=== PATIENT | female | born 1995 | race Hispanic/Latino ===

== ENCOUNTER 2022-06-24 18:21 | Inpatient (IN) | payer MEDICAID, SELFPAY ==
[~2022-06-24 18:21] MED LIST: Bupivacaine 0.25% HCL 30 ML VIAL ONE
[2022-06-24 18:59] VITALS: BMI 27.3
[2022-06-24] MEDS ORDERED: hydrALAZINE 20 MG/ML VIAL SLOW IVP PRN ×2 (19:46→19:59)
[2022-06-24 19:55] LABS: Fetal Membranes Rupture RUPTURE DETECTED (No Rupture)
[2022-06-24] MEDS ORDERED: Butorphanol Tartrate 1 MG/ML VIAL SLOW IVP PRN (19:59)
[2022-06-24] MEDS ORDERED: Ibuprofen 800 MG TAB PO PRN (19:59)
[2022-06-24] MEDS ORDERED: Misoprostol 200 MCG TAB PR PRN (19:59)
[2022-06-24] MEDS ORDERED: Carboprost 250 MCG/ML AMP IM PRN (19:59)
[2022-06-24] MEDS ORDERED: Promethazine HCl 25 MG/ML VIAL IM PRN (19:59)
[2022-06-24] MEDS ORDERED: Acetaminophen 500 MG TAB PO PRN (19:59)
[2022-06-24] MEDS ORDERED: Lidocaine 1% (PF) 30 ML VIAL SC PRN (19:59)
[2022-06-24] MEDS ORDERED: Ondansetron PF 4 MG/2 ML Vial IVP PRN (19:59)
[2022-06-24] MEDS ORDERED: Methylergonovine 0.2 MG/ML VIAL IM PRN (19:59)
[2022-06-24] MEDS ORDERED: Tranexamic Acid 1,000 MG in Sodium Chloride 0.9% 250 ML 250 ML IVPB PRN (19:59)
[2022-06-24] MEDS ORDERED: NS w/ Oxytocin 30 units 500 ML IV SCH ×2 (20:00)
[2022-06-24 22:01] LABS: Hemoglobin 12.5 g/dL (12.0-15.5); Mean Corpuscular HGB CONC 34.7 g/dL (32.0-36.0); Mean Corpuscular Hemoglobin 29.4 pg (27.0-33.0); Mean Corpuscular Volume 84.7 fl (81.6-98.3); Platelet Count 153 10x3/uL (150-450); RBC Distribution Width 13.3 % (11.5-14.5); Red Blood Cell (RBC) Count 4.25 10x6/uL (3.90-5.03); White Blood Cell (WBC) Count 7.7 10x3/uL (3.5-10.5)
[2022-06-24 22:09] LABS: SARS-CoV-2 NAA Rapid Test Not Detected (NotDetected)
[2022-06-24 22:25] LABS: Syphilis Antibody Nonreactive (Nonreactive); Syphilis Antibody Index 0.04 S/CO (<1.00 Non-Reactive)
[2022-06-24 22:26] LABS: HBSAg Index 0.23 S/CO (0-0.99); Hep B Surf Ag Non-Reactive S/CO (NonReactive)
[2022-06-25] MEDS: Lactated Ringer's 1,000 ML IV SCH ×2 (05:43→10:53)
[2022-06-25] MEDS ORDERED: Naloxone HCl 0.4 mg/ml Vial IVP PRN ×2 (07:40)
[2022-06-25] MEDS ORDERED: Acetaminophen 325 MG TAB PO PRN (07:40)
[2022-06-25] MEDS ORDERED: Lactated Ringer's 500 ML IV PRN (07:40)
[2022-06-25] MEDS ORDERED: Promethazine HCl 25 MG/ML VIAL IM PRN ×2 (07:40→16:36)
[2022-06-25] MEDS ORDERED: Ondansetron PF 4 MG/2 ML Vial IVP PRN ×2 (07:40→16:36)
[2022-06-25] MEDS ORDERED: Moisturizing Cream (Eucerin) 113 GM JAR TOP PRN (07:40)
[2022-06-25] MEDS ORDERED: diphenhydrAMINE 50 MG/ML VIAL IVP PRN (07:40)
[2022-06-25] MEDS ORDERED: ePHEDrine Sulfate 50 MG/10 ML VIAL SLOW IVP PRN (07:40)
[2022-06-25] MEDS ORDERED: Communication Order-Pharmacy FS SCH (07:45)
[2022-06-25] MEDS ORDERED: Fentanyl 2 mcg/Bupivacaine 0.1% Cassette 100 ML EPIDURAL SCH (07:45)
[2022-06-25 14:11] LABS: ALT (SGPT) 11 U/L (8-55); AST (SGOT) 17 U/L (5-34); Albumin 3.6 g/dL (3.5-5.0); Alkaline Phosphatase 209 U/L (40-110); Anion Gap 16 mmol/L (10-20); BUN (Urea Nitrogen) 8 mg/dL (7.0-18.7); Bilirubin, Total 0.6 mg/dL (0.2-1.2); Calc. Creatinine Clearance 150 mL/min (70-130); Calcium 8.7 mg/dL (7.8-10.44); Carbon Dioxide 20 mmol/L (22-29); Chloride 105 mmol/L (98-107); Estimated GFR 128; Glucose 100 mg/dL (70-105); Potassium 3.9 mmol/L (3.5-5.1); Protein, Total 6.6 g/dL (6.0-8.3); Sodium 137 mmol/L (136-145)
[2022-06-25] MEDS ORDERED: Milk Of Magnesia 30 ML UDCUP PO PRN (16:36)
[2022-06-25] MEDS ORDERED: Methylergonovine 0.2 MG/ML VIAL IM PRN (16:36)
[2022-06-25] MEDS ORDERED: diphenhydrAMINE 25 MG CAP PO PRN (16:36)
[2022-06-25] MEDS ORDERED: Bisacodyl 10 MG SUPP PR PRN (16:36)
[2022-06-25] MEDS ORDERED: Benzocaine-Menthol 82.5 ML CAN TOP PRN (16:36)
[2022-06-25] MEDS ORDERED: hydrALAZINE 20 MG/ML VIAL SLOW IVP PRN (16:36)
[2022-06-25] MEDS ORDERED: Misoprostol 200 MCG TAB VAG PRN (16:36)
[2022-06-25] MEDS ORDERED: Lanolin Ointment 7 GM TUBE TOP PRN (16:36)
[2022-06-25] MEDS ORDERED: NS w/ Oxytocin 30 units 500 ML IV SCH (16:36)
[2022-06-25] MEDS ORDERED: Boostrix 0.5 ML (Tdap) VIAL (>/=7 yrs of age) IM ONE (17:00)
[2022-06-25] MEDS: Ferrous Sulfate 325 MG TAB PO SCH (19:03)
[2022-06-25] MEDS: Ibuprofen 800 MG TAB PO SCH (22:03)
[2022-06-25] MEDS: Docusate 100 MG CAP PO SCH (22:03)
[2022-06-26] MEDS: Ibuprofen 800 MG TAB PO SCH ×3 (05:09→21:28)
[2022-06-26] MEDS: Ferrous Sulfate 325 MG TAB PO SCH ×2 (08:04→14:45)
[2022-06-26] MEDS: Prenatal Vitamin 1 TAB PO SCH (09:01)
[2022-06-26] MEDS: Docusate 100 MG CAP PO SCH ×2 (09:01→21:28)
[2022-06-27] MEDS: Ibuprofen 800 MG TAB PO SCH (06:28)
[2022-06-27] MEDS: Docusate 100 MG CAP PO SCH (08:42)
[2022-06-27] MEDS: Prenatal Vitamin 1 TAB PO SCH (08:42)
[2022-06-27 08:59] VITALS: BP 120/68; TEMP 98
[2022-06-27] MEDS: Ferrous Sulfate 325 MG TAB PO SCH (13:20)
== END 2022-06-27 14:20 | disposition home or self-care (01) | DRG 807 ==
LOC: CSHLD/OP 18:21 → CSHLD 22:04 → CSHPP 06-25 17:00
PROVIDERS: ADMIT Emergency Medicine; ATTEND Emergency Medicine
PROC: 10E0XZZ Delivery of Products of Conception, External Approach (ICD-10-PCS; principal; 2022-06-25)
PROC: 0KQM0ZZ Repair Perineum Muscle, Open Approach (ICD-10-PCS; 2022-06-25)
PROC: 10907ZC Drainage of Amniotic Fluid, Therapeutic from Products of Conception, Via Natural or Artificial Opening (ICD-10-PCS; 2022-06-25)
PROC: 10H07YZ Insertion of Other Device into Products of Conception, Via Natural or Artificial Opening (ICD-10-PCS; 2022-06-25)
DX: O75.89 Other specified complications of labor and delivery (principal); Z37.0 Single live birth; Z20.822 Contact with and (suspected) exposure to COVID-19; Z3A.40 40 weeks gestation of pregnancy; Z79.82 Long term (current) use of aspirin; Z79.899 Other long term (current) drug therapy; O99.02 Anemia complicating childbirth; D64.9 Anemia, unspecified; O70.1 Second degree perineal laceration during delivery; Z67.90 Unspecified blood type, Rh positive
CPT/HCPCS: 36415; 51702; 80053; 84112; 85027; 86780; 86850; 86900; 86901; 87340; 99285; J2001; J2590; J7120; S0020; U0002

== ENCOUNTER 2024-04-17 20:15 | Emergency (ER) | payer MEDICAID, OTHER | END 2024-04-17 20:57 | disposition home or self-care (01) | LOC: CSHERS 20:15 | DX: J98.8 Other specified respiratory disorders (principal); B97.89 Other viral agents as the cause of diseases classified elsewhere | CPT/HCPCS: 99283 ==

== ENCOUNTER 2024-05-13 03:22 | Inpatient (IN) | payer MEDICAID, SELFPAY ==
[2024-05-13] MEDS ORDERED: Promethazine HCl 25 MG/ML VIAL IM PRN ×2 (04:05→04:49)
[2024-05-13] MEDS ORDERED: Carboprost 250 MCG/ML AMP IM PRN (04:05)
[2024-05-13] MEDS ORDERED: Ondansetron PF 4 MG/2 ML Vial IVP PRN ×2 (04:05→04:49)
[2024-05-13] MEDS ORDERED: Ibuprofen 800 MG TAB PO PRN (04:05)
[2024-05-13] MEDS ORDERED: Acetaminophen 500 MG TAB PO PRN (04:05)
[2024-05-13] MEDS ORDERED: hydrALAZINE 20 MG/ML VIAL SLOW IVP PRN (04:05)
[2024-05-13] MEDS ORDERED: Misoprostol 200 MCG TAB PR PRN (04:05)
[2024-05-13] MEDS ORDERED: Tranexamic Acid 1,000 MG/10 ML VIAL IVP PRN (04:05)
[2024-05-13] MEDS ORDERED: Diphenoxylate HCl/Atropine Tablet PO PRN (04:05)
[2024-05-13] MEDS ORDERED: Lidocaine 1% (PF) 30 ML VIAL SC PRN (04:05)
[2024-05-13 04:14] VITALS: BMI 30.2
[2024-05-13] MEDS ORDERED: Penicillin G Potassium 5 MILL.UNITS in Sodium Chloride 0.9% 100 ML IVPB SCH (04:15)
[2024-05-13] MEDS ORDERED: Oxytocin 30 units/NS 500 ML 500 ML IV SCH ×2 (04:15)
[2024-05-13] MEDS ORDERED: Lactated Ringer's 1,000 ML IV SCH (04:15)
[2024-05-13 04:16] LABS: Hematocrit 37.2 % (34.9-44.5); Hemoglobin 13.4 g/dL (12.0-15.5); Mean Corpuscular Hemoglobin 30.8 pg (27.0-33.0); Mean Corpuscular Volume 85.5 fL (81.6-98.3); Mean Platelet Volume 9.5 fL (7.4-10.4); Platelet Count 193 10x3/uL (150-450); RBC Distribution Width 13.1 % (11.5-14.5); Red Blood Cell (RBC) Count 4.35 10x6/uL (3.90-5.03); White Blood Cell (WBC) Count 11.55 10x3/uL (3.5-10.5)
[2024-05-13] MEDS ORDERED: Naloxone HCl 0.4 mg/ml Vial IVP PRN ×2 (04:49)
[2024-05-13] MEDS ORDERED: ePHEDrine Sulfate 50 MG/10 ML VIAL SLOW IVP PRN (04:49)
[2024-05-13] MEDS ORDERED: diphenhydrAMINE 50 MG/ML VIAL IVP PRN (04:49)
[2024-05-13] MEDS ORDERED: Moisturizing Cream (Eucerin) 113 GM JAR TOP PRN (04:49)
[2024-05-13] MEDS ORDERED: Acetaminophen 325 MG TAB PO PRN (04:49)
[2024-05-13] MEDS ORDERED: Lactated Ringer's 500 ML IV PRN (04:49)
[2024-05-13 04:50] LABS: Syphilis Antibody Nonreactive (Nonreactive); Syphilis Antibody Index 0.04 S/CO (<1.00 Non-Reactive)
[2024-05-13 04:51] LABS: HBsAg Index 0.19 S/CO (0-0.99); Hep B Surf Ag - L&D Non-Reactive S/CO (NonReactive)
[2024-05-13] MEDS ORDERED: Communication Order-Pharmacy FS SCH (05:00)
[2024-05-13] MEDS ORDERED: fentaNYL 2 mcg/Ropivacaine 0.2% Epidural 100 ML CADD EPIDURAL SCH (05:00)
[2024-05-13] MEDS: Methylergonovine 0.2 MG/ML VIAL IM PRN (05:33)
[2024-05-13] MEDS ORDERED: Milk Of Magnesia 30 ML UDCUP PO PRN (06:23)
[2024-05-13] MEDS ORDERED: Bisacodyl 10 MG SUPP PR PRN (06:23)
[2024-05-13] MEDS ORDERED: Bupivacaine/Epinephrine 0.25% 30 ML VIAL ONE (07:00)
[2024-05-13] MEDS ORDERED: Penicillin G 2.5 MILL.units 2.5 MILL.UNITS in Premix 1 BAG IVPB SCH (08:15)
[2024-05-13] MEDS: Ibuprofen 800 MG TAB PO SCH (13:38)
[2024-05-13] MEDS: Docusate 100 MG CAP PO SCH (13:38)
[2024-05-13] MEDS: fentaNYL/Ropivacaine Epidural 100 ML ONE (14:55)
[2024-05-13] MEDS: Boostrix 0.5 ML (Tdap) VIAL (>/=7 yrs of age) IM ONE (14:55)
[2024-05-14 07:53] VITALS: BP 91/55; TEMP 97.6
== END 2024-05-14 14:00 | disposition home or self-care (01) | DRG 807 ==
LOC: CSHLD/OP 03:22 → CSHLD 04:02 → CSHPED 08:45
PROVIDERS: ADMIT Family Medicine; ATTEND Family Medicine
PROC: 10E0XZZ Delivery of Products of Conception, External Approach (ICD-10-PCS; principal; 2024-05-13)
DX: O99.02 Anemia complicating childbirth (principal); Z37.0 Single live birth; Z3A.40 40 weeks gestation of pregnancy; D64.9 Anemia, unspecified
CPT/HCPCS: 51702; 85027; 86780; 86850; 86900; 86901; 87340; 99285; J2210